=== PATIENT | male | born 1955 | race Caucasian/White ===

== ENCOUNTER → 2016-10-21 | Outpatient (CLI) | payer BC ==
[~2016-10-21] MED LIST: AMPH20TA2 PO; BENA20TA2 PO; METO-93 PO; ZOLP10TA PO
[2016-10-21 12:19] LABS: HEMATOCRIT 48.1 % (39.2-51.8); HEMOGLOBIN 16.5 g/dL (13.7-18.0); WHITE BLOOD COUNT 5.9 x10^3/uL (3.4-10)
[2016-10-21 12:29] LABS: ASPARTATE AMINO TRANSFERASE 25 U/L (15-37); BLOOD UREA NITROGEN 18 mg/dL (7-18)
== END | disposition home or self-care (01) ==
LOC: STAR 10:53
PROVIDERS: ATTEND Urology
DX: Z01.818 Encounter for other preprocedural examination (principal); C61 Malignant neoplasm of prostate
CPT/HCPCS: 36415; 80053; 81003; 85025; 87086; 93005

== ENCOUNTER 2016-10-30 10:23 | Inpatient (IN) | payer BC ==
[~2016-10-30] VITALS: Ht 182.9 cm; Wt 85.1 kg
[2016-10-30 10:44] VITALS: BP 146/90
[2016-10-30] MEDS ORDERED: LACTATED RINGERS 1,000 ML IV SCH (10:48)
[2016-10-30] MEDS ORDERED: MIDAZOLAM 1 MG/ML, 2ML ONE (11:25)
[2016-10-30] MEDS ORDERED: FENTANYL PF 100 MCG/2ML ONE ×3 (11:25→16:57)
[2016-10-30] MEDS ORDERED: ROCURONIUM 10 MG/ML ONE ×3 (12:27)
[2016-10-30] MEDS ORDERED: DEXAMETHASONE 4 MG/ML, 5ML ONE (12:27)
[2016-10-30] MEDS ORDERED: PROPOFOL 10 MG/ML, 20ML ONE (12:27)
[2016-10-30] MEDS ORDERED: CEFAZOLIN 1,000 MG ONE (12:27)
[2016-10-30] MEDS ORDERED: ONDANSETRON 2MG/ML, 2ML ONE ×3 (12:27→18:29)
[2016-10-30] MEDS ORDERED: BUPIVACAINE/PF-EPI 0.25% 1:200K IM ONE (12:46)
[2016-10-30] MEDS ORDERED: THROMBIN 5,000 UNIT VIAL TP ONE (12:46)
[2016-10-30] MEDS ORDERED: FENTANYL PF 100 MCG/2ML IV PRN (15:00)
[2016-10-30] MEDS ORDERED: HYDROmorphone 1 MG/ML, 1ML IV PRN (15:00)
[2016-10-30] MEDS ORDERED: ONDANSETRON 2MG/ML, 2ML IVPush PRN (15:00)
[2016-10-30] MEDS ORDERED: MEPERIDINE/PF 25MG/0.5ML IVPush PRN (15:00)
[2016-10-30] MEDS ORDERED: PROMETHAZINE 25 MG/ML, 1ML IV PRN (15:00)
[2016-10-30] MEDS ORDERED: ACETAMINOPHEN 325 MG TABLET PO PRN (15:00)
[2016-10-30] MEDS ORDERED: OXYcodone 5 MG/5 ML ORAL.SOL UDC PO PRN (15:00)
[2016-10-30] MEDS ORDERED: LABETALOL 5MG/ML, 20ML IV PRN (15:00)
[2016-10-30] MEDS ORDERED: hydrALAzine 20 MG/ML, 1ML IV PRN (15:00)
[2016-10-30] MEDS ORDERED: HYDROmorphone 1 MG/ML, 1ML ONE (16:10)
[2016-10-30] MEDS ORDERED: BUPIVACAINE/PF-EPI 0.25% 1:200K ONE (16:27)
[2016-10-30] MEDS ORDERED: OXYcodone 5 MG/5 ML ORAL.SOL UDC ONE (16:57)
[2016-10-30] MEDS ORDERED: ACETAMINOPHEN 650 MG/20.3 ML UDC ONE (16:57)
[2016-10-30] MEDS ORDERED: HYDROcodone/APAP 10/325 MG TABLET PO PRN (18:30)
[2016-10-30] MEDS ORDERED: D5%-0.45NACL+KCL 20MEQ 1,000 ML IV SCH (18:30)
[2016-10-30] MEDS: ONDANSETRON 2MG/ML, 2ML IV PRN (18:57)
[2016-10-30] MEDS ORDERED: LACTATED RINGERS 500 ML IVBOLUS PRN (19:00)
[2016-10-30] MEDS: morphine SULFATE 10 MG/ML, 1ML IV PRN ×2 (20:04→22:19)
[2016-10-30 20:09] VITALS: BP 125/97
[2016-10-30] MEDS: CEFAZOLIN PMX 1GM/50ML 50 ML IVPB SCH (20:37)
[2016-10-30] MEDS ORDERED: PANTOPRAZOLE 40 MG IV IVPush SCH (21:30)
[2016-10-30 23:20] VITALS: BP 123/88
[2016-10-31] MEDS: ZOLPIDEM 10MG TABLET PO PRN ×2 (00:58→23:54)
[2016-10-31 02:30] VITALS: BP 123/79
[2016-10-31] MEDS: D5%-0.45NACL+KCL 20MEQ 1,000 ML IV SCH ×3 (03:43→18:28)
[2016-10-31] MEDS: NICOTINE 14MG/24 HR PATCH.TD24 TD SCH (04:46)
[2016-10-31] MEDS: CEFAZOLIN PMX 1GM/50ML 50 ML IVPB SCH (04:48)
[2016-10-31 04:57] LABS: HEMATOCRIT 41.1 % (39.2-51.8); HEMOGLOBIN 14.2 g/dL (13.7-18.0)
[2016-10-31 05:10] LABS: BLOOD UREA NITROGEN 13 mg/dL (7-18)
[2016-10-31] MEDS: BENAZEPRIL 20 MG TABLET PO SCH ×2 (08:30→09:39)
[2016-10-31] MEDS: METOPROLOL SUCCINATE 50 MG TAB.ER.24H PO SCH ×2 (08:30→09:40)
[2016-10-31 09:35] VITALS: BP 139/91
[2016-10-31] MEDS: FAMOTIDINE 20 MG TABLET PO SCH ×2 (09:40→20:55)
[2016-10-31] MEDS: morphine SULFATE 10 MG/ML, 1ML IV PRN ×2 (11:00→18:47)
[2016-10-31 13:20] VITALS: BP 127/76
[2016-10-31] MEDS: ENOXAPARIN 40 MG/0.4 ML SQ SCH (17:00)
[2016-10-31 19:05] VITALS: BP 123/77
[2016-10-31] MEDS: HYDROcodone/APAP 5/325 TABLET PO PRN (20:55)
[2016-11-01 00:30] VITALS: BP 138/89
[2016-11-01] MEDS: D5%-0.45NACL+KCL 20MEQ 1,000 ML IV SCH ×3 (02:19→17:53)
[2016-11-01] MEDS: NICOTINE 14MG/24 HR PATCH.TD24 TD SCH (05:10)
[2016-11-01 05:28] LABS: HEMATOCRIT 38.8 % (39.2-51.8); HEMOGLOBIN 13.3 g/dL (13.7-18.0)
[2016-11-01 05:35] LABS: BLOOD UREA NITROGEN 12 mg/dL (7-18)
[2016-11-01 07:06] VITALS: BP 154/87
[2016-11-01] MEDS: FAMOTIDINE 20 MG TABLET PO SCH ×2 (08:23→20:01)
[2016-11-01] MEDS: BENAZEPRIL 20 MG TABLET PO SCH (08:24)
[2016-11-01] MEDS: METOPROLOL SUCCINATE 50 MG TAB.ER.24H PO SCH (08:24)
[2016-11-01] MEDS: ONDANSETRON 2MG/ML, 2ML IV PRN ×2 (13:23→20:01)
[2016-11-01 15:19] VITALS: BP 147/89
[2016-11-01] MEDS: ENOXAPARIN 40 MG/0.4 ML SQ SCH (17:27)
[2016-11-01 20:27] VITALS: BP 127/82
[2016-11-01] MEDS: ZOLPIDEM 10MG TABLET PO PRN (23:19)
[2016-11-01] MEDS ORDERED: D5%-0.45NACL+KCL 20MEQ 1,000 ML IV SCH (23:30)
[2016-11-02 01:54] VITALS: BP 148/99
[2016-11-02] MEDS: NICOTINE 14MG/24 HR PATCH.TD24 TD SCH (03:17)
[2016-11-02 05:28] LABS: HEMATOCRIT 43.5 % (39.2-51.8); WHITE BLOOD COUNT 6.8 x10^3/uL (3.4-10)
[2016-11-02 05:48] LABS: BLOOD UREA NITROGEN 8 mg/dL (7-18)
[2016-11-02 08:17] VITALS: BP_SYST 145; BP_SYST 155; BP_DIAS 103; BP_DIAS 96
[2016-11-02] MEDS ORDERED: D5%-0.45NACL+KCL 20MEQ 1,000 ML IV SCH ×2 (10:00→23:30)
[2016-11-02] MEDS: METOPROLOL SUCCINATE 50 MG TAB.ER.24H PO SCH (10:09)
[2016-11-02] MEDS: BENAZEPRIL 20 MG TABLET PO SCH (10:10)
[2016-11-02] MEDS: FAMOTIDINE 20 MG TABLET PO SCH ×2 (10:10→21:21)
[2016-11-02] MEDS: morphine SULFATE 10 MG/ML, 1ML IV PRN ×3 (11:16→15:55)
[2016-11-02] MEDS: ONDANSETRON 2MG/ML, 2ML IV PRN (12:24)
[2016-11-02 14:08] VITALS: BP 141/91
[2016-11-02] MEDS: HYDROcodone/APAP 5/325 TABLET PO PRN (18:39)
[2016-11-02 19:59] VITALS: BP 132/87
[2016-11-02] MEDS: ZOLPIDEM 10MG TABLET PO PRN (23:38)
[2016-11-03] MEDS: NICOTINE 14MG/24 HR PATCH.TD24 TD SCH (03:49)
[2016-11-03 03:57] VITALS: BP 122/77
[2016-11-03 05:54] LABS: HEMATOCRIT 42.8 % (39.2-51.8); HEMOGLOBIN 14.9 g/dL (13.7-18.0); WHITE BLOOD COUNT 4.7 x10^3/uL (3.4-10)
[2016-11-03 06:01] LABS: ASPARTATE AMINO TRANSFERASE 13 U/L (15-37); BLOOD UREA NITROGEN 11 mg/dL (7-18)
[2016-11-03 06:46] VITALS: BP 118/75
[2016-11-03] MEDS: BENAZEPRIL 20 MG TABLET PO SCH (07:42)
[2016-11-03] MEDS: FAMOTIDINE 20 MG TABLET PO SCH (07:43)
[2016-11-03] MEDS: METOPROLOL SUCCINATE 50 MG TAB.ER.24H PO SCH (07:43)
[2016-11-03] MEDS: HYDROcodone/APAP 5/325 TABLET PO PRN (09:06)
[2016-11-03] MEDS ORDERED: HYDR-3240 PO (10:58)
== END 2016-11-03 11:02 | disposition home or self-care (01) | DRG 707 ==
LOC: ORIP 10:23 → EDSTATUS 12:30 → 4NOR 18:04 → DCLOUNGE 11-03 10:35
PROVIDERS: ADMIT Urology; ATTEND Urology
PROC: 07BC4ZZ Excision of Pelvis Lymphatic, Percutaneous Endoscopic Approach (ICD-10-PCS; 2016-10-30)
PROC: 8E0W4CZ Robotic Assisted Procedure of Trunk Region, Percutaneous Endoscopic Approach (ICD-10-PCS; 2016-10-30)
PROC: 0VT04ZZ Resection of Prostate, Percutaneous Endoscopic Approach (ICD-10-PCS; principal; 2016-10-30 12:30)
DX: C61 Malignant neoplasm of prostate (principal); K56.7 Ileus, unspecified; I10 Essential (primary) hypertension; E11.9 Type 2 diabetes mellitus without complications
CPT/HCPCS: 36415; 74000; 80048; 80053; 82570; 85014; 85018; 85025; 86850; 86900; 88305; 88309; 88331; C1729; J0690; J1100; J1170; J1650; J2250; J2405; J2704; J3010; C1760; C9113; J2270; J3480; J7120